=== PATIENT | female | born 1935 | race Caucasian/White ===

== ENCOUNTER 2022-08-07 14:07 | Emergency (ER) | payer MEDICARE ==
[2022-08-07] VITALS (13 sets, daily range): BP systolic 78–138; BP diastolic 49–86
[~2022-08-07] VITALS: Ht 165.1 cm; Wt 50.0 kg
[2022-08-07] MEDS ORDERED: ADVAIR DISK1 INH (14:25)
[2022-08-07] MEDS ORDERED: ALBUTEROL SUL0.083 % IN (14:26)
[2022-08-07] MEDS ORDERED: ASPIRIN325 MG PO (14:26)
[2022-08-07] MEDS ORDERED: MEMANTINE HYDROC5 MG (14:27)
[2022-08-07] MEDS ORDERED: DOK100 MG PO (14:27)
[2022-08-07] MEDS ORDERED: ROSUVASTATIN CA20 MG PO (14:29)
[2022-08-07] MEDS ORDERED: VITAMIN B-12500 MCG PO (14:29)
[2022-08-07] MEDS ORDERED: MILK OF MAG30 ML/UDC PO (14:30)
[2022-08-07] MEDS ORDERED: ZOFRAN4 MG/TAB PO (14:31)
[2022-08-07 14:45] LABS: HEMATOCRIT 39.7 % (37.0-47.0); HEMOGLOBIN 12.9 g/dl (12.0-16.0); IMMATURE GRANULOCYTES 0.5 % (0.0-5.0); MEAN CELL VOLUME 100.5 fL CALC (80.0-100.0); MEAN CORPUSCULAR HGB 32.7 pG CALC (26.0-32.0); MEAN CORPUSCULAR HGB CONC 32.5 g/dL CAL (32.0-36.0); RED BLOOD COUNT 3.95 mill/uL (4.20-5.60); RED CELL DISTRI WIDTH 13.9 % (11.5-15.5)
[2022-08-07 15:05] LABS: ALBUMIN 3.6 g/dL (3.2-5.0); ALKALINE PHOSPHATASE 74 u/l (38-126); ANION GAP 10 (6-22 (CALC)); BILIRUBIN, TOTAL 0.8 mg/dL (0.0-1.4); BUN 11 mg/dL (8-23); BUN/CREATININE RATIO 18 (12-20 (CALC)); CARBON DIOXIDE 28 mmol/l (22-30); CHLORIDE 103 mmol/l (95-108); CREATININE 0.6 mg/dL (0.5-1.0); GFR FOR AFR.AMER. > 60 ML/MIN (>=60 (CALC)); GFR OTHER RACES > 60 ML/MIN (>=60 (CALC)); POTASSIUM 3.9 mmol/l (3.5-5.1); SGOT/AST 27 u/l (9-36); SODIUM 137 mmol/l (137-146); TOTAL PROTEIN 6.5 g/dL (6.3-8.2)
== END 2022-08-07 17:24 | disposition short-term general hospital (02) ==
LOC: ED 14:07
PROVIDERS: Emergency Medicine
PROC: 0T9B70Z Drainage of Bladder with Drainage Device, Via Natural or Artificial Opening (ICD-10-PCS; principal; 2022-08-07)
DX: S72.141A Displaced intertrochanteric fracture of right femur, initial encounter for closed fracture (principal); I10 Essential (primary) hypertension; W18.30XA Fall on same level, unspecified, initial encounter; Y92.099 Unspecified place in other non-institutional residence as the place of occurrence of the external cause; Z86.73 Personal history of transient ischemic attack (TIA), and cerebral infarction without residual deficits